=== PATIENT | female | born 1965 | race Hispanic/Latino ===

== ENCOUNTER → 2018-09-14 | Outpatient (CLI) | payer BC ==
[2018-09-14 09:10] LABS: CREATININE 0.7 mg/dL (0.5-1.5)
== END | disposition home or self-care (01) ==
LOC: LAB 08:06
PROVIDERS: ATTEND Internal Medicine Gastroenterology
DX: R93.2 Abnormal findings on diagnostic imaging of liver and biliary tract (principal); R10.10 Upper abdominal pain, unspecified
CPT/HCPCS: 36415; 82565; 84520

== ENCOUNTER → 2018-09-18 | Outpatient (CLI) | payer BC ==
[~2018-09-18] MED LIST: IOHEXOL-350 75 ML VIAL IV ONE
== END | disposition home or self-care (01) ==
LOC: RAH 07:40
PROVIDERS: ATTEND Internal Medicine Gastroenterology
DX: N20.0 Calculus of kidney (principal); R93.2 Abnormal findings on diagnostic imaging of liver and biliary tract
CPT/HCPCS: 74170; Q9967

== ENCOUNTER → 2019-03-08 | Outpatient (CLI) | payer BC | END | disposition home or self-care (01) | LOC: RAH 08:54 | PROVIDERS: ATTEND Family Medicine | DX: Z12.31 Encounter for screening mammogram for malignant neoplasm of breast (principal) | CPT/HCPCS: 77067 ==

== ENCOUNTER → 2024-01-30 | Outpatient (CLI) | payer BC | END | disposition home or self-care (01) | LOC: RAH 10:14 | PROVIDERS: ATTEND Nurse Practitioner Family | DX: Z12.31 Encounter for screening mammogram for malignant neoplasm of breast (principal) | CPT/HCPCS: 77063; 77067 ==

== ENCOUNTER → 2024-04-02 | Outpatient (CLI) | payer BC | END | disposition home or self-care (01) | LOC: RAH 12:58 | PROVIDERS: ATTEND Orthopaedic Surgery | DX: M77.11 Lateral epicondylitis, right elbow (principal) | CPT/HCPCS: 73221 ==